=== PATIENT | male | born 1960 | race Caucasian/White ===

== ENCOUNTER 2022-04-16 05:39 | Emergency (ER) | payer OTHER ==
--- NOTE | 2022-04-16 05:43 | ERPHSYRPT ---
- History of Present Illness Source: patient Exam Limitations: no limitations Timing/Duration: day(s) (4) Activities at Onset: none Severity of Dyspnea-Max: mild (To moderate) Severity of Dyspnea-Current: mild (To moderate) Possible Cause: no prior episodes Modifying Factors: Improves With: deep breath Associated Symptoms: denies symptoms <ADELINA ESCALONA - Last Filed: 04/16/22 06:50> <LUIS COOPER - Last Filed: 04/16/22 09:40> - History of Present Illness Time Seen by Provider: 04/16/22 05:43 Physician History: This is a 62-year-old obese white male who presents with tightening sensation in his chest and sensation of difficulty breathing. He arrives to the emergency department from home with a room air oxygenation level of 98-100%. Patient has no primary cardiac history. Symptoms have been going on for approximately 4 days. Only thing different that he can recall is exposure to mold and air conditioning unit that they were working on. He has no cough. The pain in his chest is described as a tightness. It is nonradiating. He has had no hemoptysis. He has no abdominal pain. He has no nausea vomiting. He has had no fever or chills. There is been no new medication exposures or any other type of other environmental exposures. (ADELINA ESCALONA) Allergies/Adverse Reactions: codeine Allergy (Verified 04/16/22 05:57) Travel Risk - International Travel Have you traveled outside of the country in past 3 weeks: No - Coronavirus Screening Are you exhibiting any of the following symptoms?: Yes Symptoms: Shortness of Breath Close contact with a COVID-19 positive Pt in past 14-21 Days: No <ADELINA ESCALONA - Last Filed: 04/16/22 06:50> - Review of Systems Constitutional: No Symptoms Eyes: No Symptoms Ears, Nose, & Throat: No Symptoms Respiratory: Dyspnea Cardiac: Chest Pain (Described as a tightness) Abdominal/Gastrointestinal: No Symptoms Genitourinary Symptoms: No Symptoms Musculoskeletal: No Symptoms Skin: No Symptoms Neurological: No Symptoms, Sensory Changes Psychological: Suicidal Ideations Endocrine: No Symptoms Hematologic/Lymphatic: No Symptoms Immunological/Allergic: No Symptoms All Other Systems: Reviewed and Negative <ADELINA ESCALONA - Last Filed: 04/16/22 06:50> - Past Medical History Pertinent Past Medical History: Yes - Past Surgical History Past Surgical History: Yes <ADELINA ESCALONA - Last Filed: 04/16/22 06:50> - Physical Exam General Appearance: no apparent distress, alert, anxiety, obese Eye Exam: PERRL/EOMI, eyes nml inspection Ears, Nose, Throat Exam: hearing grossly normal, normal ENT inspection, normal pharynx Neck Exam: normal inspection, non-tender, supple, full range of motion Respiratory Exam: normal breath sounds, chest tenderness, lungs clear, prolonged expirations, No respiratory distress Cardiovascular/Chest Exam: normal heart sounds, regular rate/rhythm, normal peripheral pulses Abdominal/Gastrointestinal Exam: soft, normal bowel sounds, No tenderness Rectal Exam: not done Extremity Exam: non-tender, normal range of motion, normal inspection, no calf tenderness, no pedal edema, pelvis stable, No calf tenderness Neurologic Exam: alert, oriented x 3, cooperative, line servicer II-XII nml as tested, normal mood/affect, nml cerebellar function, nml station & gait, sensation nml Skin Exam: normal color, warm, dry Lymphatic Exam: No adenopathy SpO2 Interpretation: normal O2 Delivery: Room Air <ADELINA ESCALONA - Last Filed: 04/16/22 06:50> - Nursing Vital Signs Nursing Vital Signs: Initial Vital Signs Temperature 97.1 F 04/16/22 05:41 Pulse Rate 86 04/16/22 05:41 Respiratory Rate 16 04/16/22 05:41 Blood Pressure 161/93 04/16/22 05:41 O2 Sat by Pulse Oximetry 98 04/16/22 05:41 Pain Scale Pain Intensity 0 - Course Nursing assessment & vital signs reviewed: Yes EKG Interpreted by Me: RATE (76), Sinus Rhythm, NORMAL AXIS, NORMAL INTERVALS, Right Bundle Branch Block, NORMAL ST-T, Other (No acute ischemic changes on today's EKG.) <ADELINA ESCALONA - Last Filed: 04/16/22 06:50> Ordered Tests: Active Orders 24 hr Category Date Time Status Manufacturing Worker STAT Care 04/16/22 06:16 Active EKG-ER Only STAT Care 04/16/22 06:15 Active IV Insertion STAT Care 04/16/22 06:15 Active Pulse Oximetry (ED) STAT Care 04/16/22 06:15 Active CHEST 1 VIEW (PORTABLE) Stat Exams 04/16/22 06:42 Completed CBC W DIFF Stat Lab 04/16/22 06:20 Completed CMP Stat Lab 04/16/22 06:20 Completed D-DIMER QUANTITATIVE Stat Lab 04/16/22 06:20 Completed NT PRO BNP Stat Lab 04/16/22 06:20 Completed TROPONIN Q3H Lab 04/16/22 08:00 Completed TROPONIN Q3H Lab 04/16/22 11:00 Ordered TROPONIN Q3H Lab 04/16/22 14:00 Ordered TROPONIN Q3H Lab 04/16/22 17:00 Ordered TROPONIN Q3H Lab 04/16/22 20:00 Ordered TROPONIN Q3H Lab 04/16/22 23:00 Ordered TROPONIN Stat Lab 04/16/22 06:20 Completed Respiratory Therapy Assessment DAILY RT 04/16/22 08:35 Active Medication Summary Discontinued Medications Generic Name Dose Route Start Last Admin Trade Name Freq PRN Reason Stop Dose Admin Al Hydrox/Mg Hydrox/Simethicone Confirm 04/16/22 08:21 Mag Hydrox/Al Hydrox/Simeth 30 Ml Udcup Administered 04/16/22 08:22 Dose 30 ml .ROUTE .STK-MED ONE Albuterol/Ipratropium 3 ml 04/16/22 08:21 04/16/22 08:32 Ipratropium/Albuterol Sulfate 3 Ml Ampul.Neb IH 04/16/22 08:22 3 ml STAT ONE Administration Albuterol/Ipratropium Confirm 04/16/22 08:29 Ipratropium/Albuterol Sulfate 3 Ml Ampul.Neb Administered 04/16/22 08:30 Dose 3 ml IH .STK-MED ONE Lidocaine HCl Confirm 04/16/22 08:21 Lidocaine Hcl 2% Viscous 15 Ml Udcup Administered 04/16/22 08:22 Dose 15 ml .ROUTE .STK-MED ONE Magnesium Hydroxide 45 ml 04/16/22 08:20 04/16/22 08:24 Mag Hydrx/Alum Hyd/Simeth/Lido 45 Ml Bottle PO 04/16/22 08:21 45 ml STAT ONE Administration Lab/Rad Data: Laboratory Result Diagrams 04/16/22 06:20 04/16/22 06:20 Laboratory Results 04/16/22 04/16/22 04/16/22 Range/Units 08:25 08:00 06:20 WBC (4.0-10.5) x10^3/uL RBC (4.1-5.6) x10^6/uL Hgb (12.5-18.0) g/dL Hct (42-50) % MCV (78-100) fL MCH (26-32) pg MCHC (32-36) g/dL RDW (11.5-14.0) % Plt Count (150-450) x10^3/uL MPV (7.5-11.0) fL Gran % (36.0-66.0) % Immature Gran % (Auto) (0.00-0.4) % Nucleat RBC Rel Count (0.00-0.1) % Eos # (Auto) (0-0.5) x10^3/uL Immature Gran # (Auto) (0.00-0.03) x10^3u/L Absolute Lymphs (auto) (1.0-4.6) x10^3/uL Absolute Monos (auto) (0.0-1.3) x10^3/uL Absolute Nucleated RBC (0.00-0.01) x10^3u/L Lymphocytes % (24.0-44.0) % Monocytes % (0.0-12.0) % Eosinophils % (0.00-5.0) % Basophils % (0.0-0.4) % Absolute Granulocytes (1.4-6.9) x10^3/uL Basophils # (0-0.4) x10^3/uL D-Dimer (0.0-0.50) mg/L Sodium (137-145) mmol/L Potassium (3.5-5.1) mmol/L Chloride (98-107) mmol/L Carbon Dioxide (22-30) mmol/L Anion Gap (5-15) MEQ/L BUN (9-20) mg/dL Creatinine (0.66-1.25) mg/dL Estimated GFR ML/MIN Glucose (74-106) mg/dL Calcium (8.4-10.2) mg/dL Total Bilirubin (0.2-1.3) mg/dL AST (17-59) U/L ALT (0-50) U/L Alkaline Phosphatase (38-126) U/L Troponin I < 0.012 < 0.012 (0.000-0.034) ng/mL NT-Pro-B Natriuret Pep (0-900) pg/mL Serum Total Protein (6.3-8.2) g/dL Albumin (3.5-5.0) g/dL Influenza Type A Ag (NEGATIVE) Influenza Type B Ag (NEGATIVE) RSV (PCR) (Negative) SARS-CoV-2 (PCR) (NEGATIVE) Group A Strep Antibody NOT DETECTED (NEGATIVE) 04/16/22 04/16/22 04/16/22 Range/Units 06:20 06:20 06:20 WBC (4.0-10.5) x10^3/uL RBC (4.1-5.6) x10^6/uL Hgb (12.5-18.0) g/dL Hct (42-50) % MCV (78-100) fL MCH (26-32) pg MCHC (32-36) g/dL RDW (11.5-14.0) % Plt Count (150-450) x10^3/uL MPV (7.5-11.0) fL Gran % (36.0-66.0) % Immature Gran % (Auto) (0.00-0.4) % Nucleat RBC Rel Count (0.00-0.1) % Eos # (Auto) (0-0.5) x10^3/uL Immature Gran # (Auto) (0.00-0.03) x10^3u/L Absolute Lymphs (auto) (1.0-4.6) x10^3/uL Absolute Monos (auto) (0.0-1.3) x10^3/uL Absolute Nucleated RBC (0.00-0.01) x10^3u/L Lymphocytes % (24.0-44.0) % Monocytes % (0.0-12.0) % Eosinophils % (0.00-5.0) % Basophils % (0.0-0.4) % Absolute Granulocytes (1.4-6.9) x10^3/uL Basophils # (0-0.4) x10^3/uL D-Dimer 0.24 (0.0-0.50) mg/L Sodium 138 (137-145) mmol/L Potassium 4.0 (3.5-5.1) mmol/L Chloride 103 (98-107) mmol/L Carbon Dioxide 26 (22-30) mmol/L Anion Gap 12.4 (5-15) MEQ/L BUN 16 (9-20) mg/dL Creatinine 1.01 (0.66-1.25) mg/dL Estimated GFR > 60.0 ML/MIN Glucose 134 H (74-106) mg/dL Calcium 9.0 (8.4-10.2) mg/dL Total Bilirubin 0.80 (0.2-1.3) mg/dL AST 27 (17-59) U/L ALT 34 (0-50) U/L Alkaline Phosphatase 61 (38-126) U/L Troponin I (0.000-0.034) ng/mL NT-Pro-B Natriuret Pep 37.6 (0-900) pg/mL Serum Total Protein 7.7 (6.3-8.2) g/dL Albumin 4.2 (3.5-5.0) g/dL Influenza Type A Ag NEGATIVE (NEGATIVE) Influenza Type B Ag NEGATIVE (NEGATIVE) RSV (PCR) NEGATIVE (Negative) SARS-CoV-2 (PCR) NEGATIVE (NEGATIVE) Group A Strep Antibody (NEGATIVE) 04/16/22 Range/Units 06:20 WBC 7.4 (4.0-10.5) x10^3/uL RBC 4.96 (4.1-5.6) x10^6/uL Hgb 15.6 (12.5-18.0) g/dL Hct 46.1 (42-50) % MCV 92.9 (78-100) fL MCH 31.5 (26-32) pg MCHC 33.8 (32-36) g/dL RDW 12.3 (11.5-14.0) % Plt Count 217 (150-450) x10^3/uL MPV 11.2 H (7.5-11.0) fL Gran % 58.6 (36.0-66.0) % Immature Gran % (Auto) 0.4 (0.00-0.4) % Nucleat RBC Rel Count 0.0 (0.00-0.1) % Eos # (Auto) 0.43 (0-0.5) x10^3/uL Immature Gran # (Auto) 0.03 (0.00-0.03) x10^3u/L Absolute Lymphs (auto) 1.60 (1.0-4.6) x10^3/uL Absolute Monos (auto) 0.91 (0.0-1.3) x10^3/uL Absolute Nucleated RBC 0.00 (0.00-0.01) x10^3u/L Lymphocytes % 21.5 L (24.0-44.0) % Monocytes % 12.2 H (0.0-12.0) % Eosinophils % 5.8 H (0.00-5.0) % Basophils % 1.5 (0.0-0.4) % Absolute Granulocytes 4.35 (1.4-6.9) x10^3/uL Basophils # 0.11 (0-0.4) x10^3/uL D-Dimer (0.0-0.50) mg/L Sodium (137-145) mmol/L Potassium (3.5-5.1) mmol/L Chloride (98-107) mmol/L Carbon Dioxide (22-30) mmol/L Anion Gap (5-15) MEQ/L BUN (9-20) mg/dL Creatinine (0.66-1.25) mg/dL Estimated GFR ML/MIN Glucose (74-106) mg/dL Calcium (8.4-10.2) mg/dL Total Bilirubin (0.2-1.3) mg/dL AST (17-59) U/L ALT (0-50) U/L Alkaline Phosphatase (38-126) U/L Troponin I (0.000-0.034) ng/mL NT-Pro-B Natriuret Pep (0-900) pg/mL Serum Total Protein (6.3-8.2) g/dL Albumin (3.5-5.0) g/dL Influenza Type A Ag (NEGATIVE) Influenza Type B Ag (NEGATIVE) RSV (PCR) (Negative) SARS-CoV-2 (PCR) (NEGATIVE) Group A Strep Antibody (NEGATIVE) - Progress Progress: re-examined, unchanged Air Movement: good Blood Culture(s) Obtained: No Counseled pt/family regarding: lab results, diagnosis, need for follow-up, rad results <ADELINA ESCALONA - Last Filed: 04/16/22 06:50> - Progress Progress: improved <LUIS COOPER - Last Filed: 04/16/22 09:40> - Progress Progress Note: 04/16/22 06:48 Chest x-ray shows no acute cardiopulmonary process. (ADELINA ESCALONA) 04/16/22 09:33 Patient is checked out to me at shift change from Dr. Escalona with pending work- up. Patient during my evaluation reported that he has a soreness in the throat, choking sensation and difficulty swallowing for the last few days and started to feel as if he was having some shortness of breath earlier. Also reports occasional food stuck in his throat and it takes a while before it goes down. He denied any chest pain to me. I have given him GI cocktail and DuoNeb, on reevaluation feeling better. Lungs bilateral clear to auscultation with no acute finding on the chest x-ray. Grossly unremarkable work-up including troponin x2, D-dimer. I believe patient has some element of GERD/esophageal stricture, recommended outpatient GI follow-up and also cardiology evaluation. Discussed signs symptoms of worsening needing return to ER which he seems understanding. 04/16/22 09:40 (LUIS COOPER) - Departure Departure Disposition: Home Critical Care Time: No <ADELINA ESCALONA - Last Filed: 04/16/22 06:50> <LUIS COOPER - Last Filed: 04/16/22 09:40> - Departure Clinical Impression: Shortness of breath, Esophagitis Condition: Stable Referrals: KESHIA SOLITARIO [NON-STAFF PHY W/O PRIVILEGES] - Follow up/PCP as directed (Call in 3 days for reevaluation) Provider,Unknown [Primary Care Provider] - Follow Up with PCP/3 days SUNI EPSTEIN [CONSULTING PHYSICIAN] - Follow up/PCP as directed (In 3 days for reevaluation) Instructions: Shortness of Breath (Dyspnea) (DC) Additional Instructions: Follow-up with primary care, GI and cardiology for reevaluation. Return to ER for throat closing sensation, difficulty breathing/swallowing etc. Prescriptions: Albuterol Sulfate [Albuterol Sulfate Hfa] 8.5 gm IH Q6H PRN 7 Days #1 inh PRN Reason: Cough PANTOPRAZOLE 40 mg Tablet [Protonix 40MG Tablet] 40 mg PO QAM #30 tab
[2022-04-16 06:36] LABS: Absolute Neutrophil Ct (ANC) 4.35 x10^3/uL (1.4-6.9); Basophil (Absolute #) 0.11 x10^3/uL (0-0.4); Eosinophil % 5.8 % (0.00-5.0); Eosinophil (Absolute #) 0.43 x10^3/uL (0-0.5); Hematocrit 46.1 % (42-50); Hemoglobin 15.6 g/dL (12.5-18.0); Lymphocytes % 21.5 % (24.0-44.0); Mean Cell Volume 92.9 fL (78-100); Mean Corpuscular Hemoglobin 31.5 pg (26-32); Mean Corpuscular Hgb Concent. 33.8 g/dL (32-36); Mean Platelet Volume 11.2 fL (7.5-11.0); Monocyte (Absolute #) 0.91 x10^3/uL (0.0-1.3); Monocytes % 12.2 % (0.0-12.0); Neutrophil % 58.6 % (36.0-66.0); Platelet Count 217 x10^3/uL (150-450); Red Blood Count 4.96 x10^6/uL (4.1-5.6); Red Cell Distribution Width 12.3 % (11.5-14.0); White Blood Count 7.4 x10^3/uL (4.0-10.5)
[2022-04-16 06:56] LABS: ALBUMIN 4.2 g/dL (3.5-5.0); ALKALINE PHOSPHATASE 61 U/L (38-126); ANION GAP 12.4 MEQ/L (5-15); BLOOD UREA NITROGEN 16 mg/dL (9-20); CHLORIDE 103 mmol/L (98-107); Carbon Dioxide 26 mmol/L (22-30); Creatinine 1 1.01 mg/dL (0.66-1.25); EST GLOMERULAR FILTRATION RATE > 60.0 ML/MIN; Glucose 134 mg/dL (74-106); NT PRO BNP 37.6 pg/mL (0-900); SGOT/AST 27 U/L (17-59); SGPT/ALT 34 U/L (0-50); SODIUM 138 mmol/L (137-145); Total Protein 7.7 g/dL (6.3-8.2)
[2022-04-16 07:12] LABS: INFLUENZA A NEGATIVE (NEGATIVE); INFLUENZA B NEGATIVE (NEGATIVE); RESPIRATORY SYNCTIAL VIRUS NEGATIVE (Negative); SARS-CoV-2 Xpert Express NEGATIVE (NEGATIVE)
--- NOTE | 2022-04-16 07:59 | XRAY ---
Indication: Chest pain. Short of breath. Comparison: June 06, 2020. Portable chest demonstrates normal heart and lungs. Bony thorax intact with mild degenerative changes and mild levoscoliosis. No new/acute findings.
[2022-04-16] MEDS ORDERED: GI COCKTAIL 45 ML (Maalox/Lidocaine) PO ONE (08:20)
[2022-04-16] MEDS ORDERED: DUONEB 0.5-3 MG/3 ml Neb IH ONE ×2 (08:21→08:29)
[2022-04-16] MEDS ORDERED: XYLOCAINE VISCOUS 2% 15 ML CUP ONE (08:21)
[2022-04-16] MEDS ORDERED: MAALOX ES 30 ML UNIT DOSE ONE (08:21)
[2022-04-16 09:35] VITALS: BP 128/77; PULSE 74; O2SAT 94
== END 2022-04-16 09:47 | disposition home or self-care (01) ==
LOC: ED 05:39
DX: R06.02 Shortness of breath (principal); K20.90 Esophagitis, unspecified without bleeding; R07.9 Chest pain, unspecified; R13.10 Dysphagia, unspecified
CPT/HCPCS: 0241U; 36000; 36415; 71045; 80053; 83880; 84484; 85025; 85379; 87651; 93005; 93041; 94640; 94760; 99284; A9270-GY